=== PATIENT | female | born 1965 | race Caucasian/White ===

== ENCOUNTER 2016-05-22 12:07 | Emergency (ER) | payer OTHER ==
--- NOTE | 2016-05-22 12:19 | CPEKG ---
Heart Rate: 86 RR Interval: 698 P-R Interval: 156 QRSD Interval: 76 QT Interval: 348 QTC Interval: 417 P [place]: 78 QRS [place]: 81 T Wave [place]: 46 EKG Severity - NORMAL ECG - EKG Impression: SINUS RHYTHM Electronically Signed By: Vivian Hyde 22-May-2016 21:23:30
[2016-05-22] MEDS ORDERED: ONDANSETRON 4 MG/2 ML VIAL IVP ONE (12:22)
--- NOTE | 2016-05-22 12:23 | EDPHY ---
H & P Time Seen by Provider: 05/22/16 12:22 HPI/ROS: CHIEF COMPLAINT: Chest pressure, nausea, left arm discomfort. HISTORY OF PRESENT ILLNESS: The patient is a 50-year-old female who presents with nausea, dizziness, chest pressure, and left arm discomfort for the last 3 days. The chest pressure has been intermittent, dull and does not radiate. Not associated with exertion. The nausea has occurred in the past 2 mornings but today it was constant and did not go away. Associated with dizziness, which is described as a spinning sensation. 2 week history URI symptoms including sore throat and rhinorrhea for the past 2 weeks. The URI symptoms have been improving since then. She denies cough, fever, vomiting, shortness of breath. She does admit to recent airplane travel. She has a history of similar symptoms and was last admitted in 2012 for chest pain. Negative nuclear stress test and normal ECHO in 2012. Cardiac risk factors negative. Nonsmoker; no family history; no hypertension, diabetes or hypercholesterolemia. REVIEW OF SYSTEMS: A complete 10-point review of systems was performed and is negative except for those items mentioned in the HPI. Past Medical/Surgical History: Denies. Social History: Nonsmoker. Smoking Status: Never smoked Physical Exam: General Appearance: Alert, anxious Eyes: Pupils equal and round, no conjunctival pallor or injection ENT, Mouth: Horizontal nystagmus, worse with rightward gaze. Mucous membranes moist Neck: Normal inspection Respiratory: Lungs are clear to auscultation Cardiovascular: Regular rate and rhythm. No chest wall tenderness. Gastrointestinal: Abdomen is soft and non- tender Neurological: Alert, oriented x3, cranial nerves II through XII intact, motor 5 /5, sensory intact to light touch, normal gait Skin: Warm and dry, no rash Extremities: Nontender, no pedal edema Psychiatric: Mood and affect normal Constitutional: Initial Vital Signs Temperature (C) 37.0 C 05/22/16 12:15 Heart Rate 87 05/22/16 12:15 Respiratory Rate 16 05/22/16 12:15 Blood Pressure 104/78 05/22/16 12:15 O2 Sat (%) 97 05/22/16 12:15 O2 Delivery Mode Room Air Allergies/Adverse Reactions: No Known Allergies Allergy (Unverified 05/16/10 00:43) Home Medications: Medication Instructions Recorded Hrt 05/22/16 Meclizine HCl [Meclizine HCl 25 mg 25 mg PO TID PRN #15 tab 05/22/16 (RX,OTC)] Ondansetron Odt [Zofran Odt 4 mg 4 mg PO Q4 PRN #6 tab 05/22/16 (*)] Medical Decision Making - Diagnostics EKG Interpretation: EKG interpreted by me reveals normal sinus rhythm, normal axis, normal intervals , ST and T segments normal. Interpretation: normal EKG Imaging: Chest x-ray reviewed by me reveals no acute process. ED Course/Re-evaluation: This patient presents with multiple symptoms after a recent URI. Chest pain is atypical and I do not suspect acute coronary syndrome. Stat EKG reveals no evidence of ischemia or dysrhythmia. Given horizontal nystagmus, dizziness and nausea, she also has vertigo. Neurologic exam is normal and she has no concerning signs or symptoms for a central etiology for vertigo. An IV was established and labs ordered. The patient was placed on monitoring engineer. Chest x -ray, EKG ordered. WBC elevated at 10.59. D-dimer minimally elevated at 0.53, which is in the indeterminate range. After careful consideration, I do not feel that I need to proceed with CT pulmonary angiogram to rule out pulmonary embolism. Vital signs are normal and oxygen saturation is normal. More likely diagnosis is pleurisy related to recent viral syndrome. 1348: Reassessed patient. She is feeling better and ready to go home. I answered her questions. She was given return precautions prior to discharge. Differential Diagnosis: Differential diagnosis includes does not limited to pneumonia, pulmonary embolism, dehydration, CVA. - Data Points Laboratory Results: Laboratory Results 05/22/16 12:15 05/22/16 12:15 05/22/16 12:15 WBC 10.59 H 10^3/uL (3.80-9.50) RBC 4.66 10^6/uL (4.18-5.33) Hgb 14.6 g/dL (12.6-16.3) Hct 42.4 % (38.0-47.0) MCV 91.0 fL (81.5-99.8) MCH 31.3 pg (27.9-34.1) MCHC 34.4 g/dL (32.4-36.7) RDW 11.9 % (11.5-15.2) Plt Count 249 10^3/uL (150-400) MPV 10.1 fL (8.7-11.7) Neut % (Auto) 86.0 H % (39.3-74.2) Lymph % (Auto) 8.1 L % (15.0-45.0) [place] % (Auto) 3.8 L % (4.5-13.0) Eos % (Auto) 1.4 % (0.6-7.6) Baso % (Auto) 0.2 L % (0.3-1.7) Nucleat RBC Rel Count 0.0 % (0.0-0.2) Absolute Neuts (auto) 9.11 H 10^3/uL (1.70-6.50) Absolute Lymphs (auto) 0.86 L 10^3/uL (1.00-3.00) Absolute Monos (auto) 0.40 10^3/uL (0.30-0.80) Absolute Eos (auto) 0.15 10^3/uL (0.03-0.40) Absolute Basos (auto) 0.02 10^3/uL (0.02-0.10) Absolute Nucleated RBC 0.00 10^3/uL (0-0.01) Immature Gran % 0.5 % (0.0-1.1) Immature Gran # 0.05 10^3/uL (0.00-0.10) D-Dimer 0.53 H ug/mLFEU (0.00-0.50) Sodium 142 mEq/L (134-144) Potassium 4.1 mEq/L (3.5-5.2) Chloride 109 mEq/L (97-110) Carbon Dioxide 22 mEq/l (22-31) Anion Gap 11 mEq/L (8-16) BUN 8 mg/dL (7-23) Creatinine 0.7 mg/dL (0.6-1.0) Estimated GFR > 60 Glucose 107 H mg/dL (70-100) Calcium 8.9 mg/dL (8.5-10.4) Troponin I < 0.012 ng/mL (0-0.034) Medications Given: Discontinued Medications Sodium Chloride (Ns) 1,000 mls @ 0 mls/hr IV ONCE ONE PRN Reason: Wide Open Stop: 05/22/16 12:41 Last Admin: 05/22/16 13:08 Dose: 1,000 mls Ondansetron HCl (Zofran) 4 mg IVP EDNOW ONE Stop: 05/22/16 12:23 Last Admin: 05/22/16 12:27 Dose: 4 mg Departure - Departure Disposition: Home, Routine, Self-Care Clinical Impression: Vertigo Chest pain Qualifiers: Chest pain type: other chest pain Qualifier Code: (R07.89) Other chest pain Condition: Good Instructions: Vertigo (ED), Chest Pain (DC) Additional Instructions: Take Meclizine as prescribed when needed for dizziness. Take Zofran as prescribed when needed for nausea. Follow up with your primary care provider this week for reevaluation. Call Dr. Giron, ENT, if you have continued dizziness and vertigo. Return to the emergency department for any serious worsening of condition. Referrals: Darius Ulloa MD [Primary Care Provider] - As per Instructions Aris Giron MD [Medical Doctor] - As per Instructions Prescriptions: Meclizine HCl [Meclizine HCl 25 mg (RX,OTC)] 25 mg PO TID PRN #15 tab PRN Reason: Dizziness Ondansetron Odt [Zofran Odt 4 mg (*)] 4 mg PO Q4 PRN #6 tab PRN Reason: Nausea Report Scribed for: Vivian Hyde Report Scribed by: Celio Ramires Date of Report: 05/22/16 Time of Report: 12:23 Physician Review and Approval Statement: 05/22/16 12:23 Portions of this note were transcribed by a medical screener. I personally performed a history, physical exam, medical decision making, and confirmed accuracy of information the transcribed note.
[2016-05-22 12:29] LABS: % IMMATURE GRANULYOCYTES 0.5 % (0.0-1.1); ABSOLUTE IMMATURE GRANULOCYTES 0.05 10^3/uL (0.00-0.10); ADD DIFF? NO; ADD MORPH? NO; ADD SCAN? NO; ATYPICAL LYMPHOCYTE FLAG 0 (0-99); FRAGMENT RBC FLAG 0 (0-99); HEMATOCRIT 42.4 % (38.0-47.0); HEMOGLOBIN 14.6 g/dL (12.6-16.3); LEFT SHIFT FLG 0 (0-99); LIPEMIA HEMOLYSIS FLAG 90 (0-99); MEAN CELL HEMOGLOBIN 31.3 pg (27.9-34.1); MEAN CELL HEMOGLOBIN CONCENTR. 34.4 g/dL (32.4-36.7); MEAN PLATELET VOLUME 10.1 fL (8.7-11.7); PLATELET CLUMPS FLAG 0 (0-99); PLATELET COUNT 249 10^3/uL (150-400); RED BLOOD CELL COUNT 4.66 10^6/uL (4.18-5.33); RED CELL DISTRIBUTION WIDTH 11.9 % (11.5-15.2)
[2016-05-22 12:40] LABS: ANION GAP 11 mEq/L (8-16); CALCIUM 8.9 mg/dL (8.5-10.4); CARBON DIOXIDE 22 mEq/l (22-31); CHLORIDE 109 mEq/L (97-110); CREATININE 0.7 mg/dL (0.6-1.0); GLOMERULAR FILTRATION RATE > 60; GLUCOSE 107 mg/dL (70-100); POTASSIUM 4.1 mEq/L (3.5-5.2); SODIUM 142 mEq/L (134-144)
[2016-05-22] MEDS ORDERED: NS 1,000 ML IV ONE (12:40)
[2016-05-22 12:51] LABS: TROPONIN I < 0.012 ng/mL (0-0.034)
--- NOTE | 2016-05-22 13:17 | DX ---
PA and Lateral Chest - May 22, 2016, at 12:20 p.m. Indication: Chest pain. Comparison: 2 view chest dated October 02, 2012. Findings: Lungs are well aerated and clear. Minimal linear scarring is present at the right base. No pneumothorax, edema, airspace consolidation or effusion. Heart size is normal. Impression: Clear lungs. No acute process.
[2016-05-22 14:09] VITALS: BP 104/73; PULSE 82; RESP 20; TEMP 98.2; O2SAT 94
== END 2016-05-22 14:09 | disposition home or self-care (01) ==
DX: R07.89 Other chest pain (principal); R42 Dizziness and giddiness
CPT/HCPCS: 96374; J2405

== ENCOUNTER → 2016-06-23 | Outpatient (CLI) | payer OTHER | LOC: FIMAGING 09:05 | PROVIDERS: ATTEND Internal Medicine | DX: Z12.31 Encounter for screening mammogram for malignant neoplasm of breast (principal); Z80.3 Family history of malignant neoplasm of breast | CPT/HCPCS: G0202 ==

== ENCOUNTER → 2016-08-09 | Outpatient (CLI) | payer OTHER | LOC: FIMAGING 10:19 | PROVIDERS: ATTEND Internal Medicine | DX: Z13.820 Encounter for screening for osteoporosis (principal); M85.80 Other specified disorders of bone density and structure, unspecified site ==

== ENCOUNTER → 2018-01-11 | Outpatient (CLI) | payer OTHER | LOC: FIMAGING 11:12 | PROVIDERS: ATTEND Obstetrics & Gynecology | DX: Z12.31 Encounter for screening mammogram for malignant neoplasm of breast (principal) ==